=== PATIENT | male | born 1990 | race Caucasian/White ===

== ENCOUNTER 2018-11-13 23:00 | Emergency (ER) | payer MEDICAID, OTHER ==
[2018-11-13] MEDS ORDERED: Acetaminophen/HYDROcodone 325-10 MG Tab PO ONE (23:01)
[2018-11-13] MEDS ORDERED: Ketorolac 30 MG/ML SDV IM ONE (23:09)
--- NOTE | 2018-11-13 23:12 | EDM.PDOC ---
ED HPI GENERAL MEDICAL PROBLEM - General Chief Complaint: Back Pain or Injury Stated Complaint: SHARP PAIN ON LEFT SIDE, SOB [phone] Time Seen by Provider: 11/13/18 23:10 Source of Information: Reports: Patient History Limitations: Reports: No Limitations - History of Present Illness INITIAL COMMENTS - FREE TEXT/NARRATIVE: sudden onset left back pain while sitting, has h/o back pain works lifting. - Related Data Allergies Allergy/AdvReac Type Severity Reaction Status Date / Time No Known Allergies Allergy Verified 11/13/18 23:07 Home Meds: Home Meds . [No Known Home Meds] 11/14/18 [History] ED ROS GENERAL - Review of Systems Review Of Systems: ROS reveals no pertinent complaints other than HPI. ED EXAM,LOWER BACK PAIN/INJURY - Physical Exam Exam: See Below Exam Limited By: No Limitations General Appearance: Alert, WD/WN, Mild Distress, Other (pain) Ears: Hearing Grossly Normal Throat/Mouth: Normal Voice, No Airway Compromise Head: Atraumatic Neck: Non-Tender, Full Range of Motion Respiratory/Chest: No Respiratory Distress Cardiovascular: Regular Rate, Rhythm GI/Abdominal: Soft, Non-Tender Back Exam: Muscle Spasm, Paraspinal Tenderness, Other (left L2-3-4 region without radiculitis) Neurological: Alert, No Motor/Sensory Deficits, Oriented x 3 Psychiatric: Flat Affect Skin Exam: Warm, Dry, Normal Color Lymphatic: No Adenopathy Course - Vital Signs Last Recorded V/S: Last Vital Signs Temp 36.6 C 11/13/18 23:10 Pulse 89 11/13/18 23:10 Resp 20 11/13/18 23:10 BP 144/101 H 11/13/18 23:10 Pulse Ox 98 11/13/18 23:10 - Orders/Labs/Meds Orders: Active Orders 24 hr Category Date Time Status Sodium Chloride 0.9% [Normal Saline] 1,000 ml Med 11/13/18 23:39 Active IV .BOLUS Medication Orders Sodium Chloride (Normal Saline) 1,000 mls @ 999 mls/hr IV .BOLUS ONE Stop: 11/14/18 00:39 Last Admin: 11/13/18 23:47 Dose: 999 mls/hr Labs: Laboratory Tests 11/13/18 11/13/18 11/13/18 Range/Units 23:30 23:30 23:36 WBC 16.0 H (5.0-10.0) 10^3/uL RBC 6.09 (4.6-6.2) 10^6/uL Hgb 17.4 (14.0-18.0) g/dL Hct 50.0 (40.0-54.0) % MCV 82.1 (80-100) fL MCH 28.6 (27.0-34.0) pg MCHC 34.8 (33.0-35.0) g/dL Plt Count 319 (150-450) 10^3/uL Neut % (Auto) 82.7 H (42.2-75.2) % Lymph % (Auto) 11.5 L (20.5-50.1) % Summers % (Auto) 5.4 (2-8) % Eos % (Auto) 0.2 L (1.0-3.0) % Baso % (Auto) 0.2 (0.0-1.0) % Sodium (135-145) mmol/L Potassium (3.6-5.0) mmol/L Chloride (101-111) mmol/L Carbon Dioxide (21.0-31.0) mmol/L Anion Gap BUN (7-18) mg/dL Creatinine (0.6-1.3) mg/dL Est Cr Clr Drug Dosing mL/min Estimated GFR (MDRD) BUN/Creatinine Ratio Glucose (74-105) mg/dL Calcium (8.4-10.2) mg/dl Total Bilirubin (0.2-1.0) mg/dL AST (10-42) IU/L ALT (10-60) IU/L Alkaline Phosphatase (42-121) IU/L Total Protein (6.7-8.2) g/dl Albumin (3.2-5.5) g/dl Globulin Albumin/Globulin Ratio Urine Color Yellow (YELLOW) Urine Appearance Cloudy (CLEAR) Urine pH 7.0 (5.0-9.0) Ur Specific Ayden 1.020 (1.005-1.030) Urine Protein Trace H (NEGATIVE) Urine Glucose (UA) Negative (NEGATIVE) Urine Ketones Negative (NEGATIVE) Urine Occult Blood Large H (NEGATIVE) Urine Nitrite Negative (NEGATIVE) Urine Bilirubin Negative (NEGATIVE) Urine Urobilinogen 2.0 H (0.2-1.0) mg/dL Ur Leukocyte Esterase Negative (NEGATIVE) Urine RBC >100 H /HPF Urine WBC 0-5 (0-5/HPF) /HPF Ur Epithelial Cells Occasional (NOT SEEN) /HPF Amorphous Sediment Many (NOT SEEN) /HPF Urine Bacteria Few (0-FEW/HPF) /HPF Granular Casts Occasional (NOT SEEN) /LPF Urine Opiates Screen Negative (NEGATIVE) Ur Oxycodone Screen Negative (NEGATIVE) Urine Methadone Screen Negative (NEGATIVE) Ur Barbiturates Screen Negative (NEGATIVE) U Tricyclic Antidepress Negative (NEGATIVE) Ur Phencyclidine Scrn Negative (NEGATIVE) Ur Amphetamine Screen Negative (NEGATIVE) U Methamphetamines Scrn Negative (NEGATIVE) Urine MDMA Screen Negative (NEGATIVE) U Benzodiazepines Scrn Negative (NEGATIVE) Urine Cocaine Screen Negative (NEGATIVE) U Marijuana (THC) Screen Negative (NEGATIVE) 11/13/18 Range/Units 23:36 WBC (5.0-10.0) 10^3/uL RBC (4.6-6.2) 10^6/uL Hgb (14.0-18.0) g/dL Hct (40.0-54.0) % MCV (80-100) fL MCH (27.0-34.0) pg MCHC (33.0-35.0) g/dL Plt Count (150-450) 10^3/uL Neut % (Auto) (42.2-75.2) % Lymph % (Auto) (20.5-50.1) % Summers % (Auto) (2-8) % Eos % (Auto) (1.0-3.0) % Baso % (Auto) (0.0-1.0) % Sodium 139 (135-145) mmol/L Potassium 4.1 (3.6-5.0) mmol/L Chloride 101 (101-111) mmol/L Carbon Dioxide 27.0 (21.0-31.0) mmol/L Anion Gap 15.1 BUN 15 (7-18) mg/dL Creatinine 1.2 (0.6-1.3) mg/dL Est Cr Clr Drug Dosing 84.16 mL/min Estimated GFR (MDRD) > 60 BUN/Creatinine Ratio 12.50 Glucose 160 H (74-105) mg/dL Calcium 9.4 (8.4-10.2) mg/dl Total Bilirubin 1.1 H (0.2-1.0) mg/dL AST 31 (10-42) IU/L ALT 64 H (10-60) IU/L Alkaline Phosphatase 68 (42-121) IU/L Total Protein 8.1 (6.7-8.2) g/dl Albumin 4.7 (3.2-5.5) g/dl Globulin 3.4 Albumin/Globulin Ratio 1.38 Urine Color (YELLOW) Urine Appearance (CLEAR) Urine pH (5.0-9.0) Ur Specific Ayden (1.005-1.030) Urine Protein (NEGATIVE) Urine Glucose (UA) (NEGATIVE) Urine Ketones (NEGATIVE) Urine Occult Blood (NEGATIVE) Urine Nitrite (NEGATIVE) Urine Bilirubin (NEGATIVE) Urine Urobilinogen (0.2-1.0) mg/dL Ur Leukocyte Esterase (NEGATIVE) Urine RBC /HPF Urine WBC (0-5/HPF) /HPF Ur Epithelial Cells (NOT SEEN) /HPF Amorphous Sediment (NOT SEEN) /HPF Urine Bacteria (0-FEW/HPF) /HPF Granular Casts (NOT SEEN) /LPF Urine Opiates Screen (NEGATIVE) Ur Oxycodone Screen (NEGATIVE) Urine Methadone Screen (NEGATIVE) Ur Barbiturates Screen (NEGATIVE) U Tricyclic Antidepress (NEGATIVE) Ur Phencyclidine Scrn (NEGATIVE) Ur Amphetamine Screen (NEGATIVE) U Methamphetamines Scrn (NEGATIVE) Urine MDMA Screen (NEGATIVE) U Benzodiazepines Scrn (NEGATIVE) Urine Cocaine Screen (NEGATIVE) U Marijuana (THC) Screen (NEGATIVE) Meds: Medications Generic Name Dose Route Start Last Admin Trade Name Freq PRN Reason Stop Dose Admin Sodium Chloride 1,000 mls @ 999 mls/hr 11/13/18 23:39 11/13/18 23:47 Normal Saline IV 11/14/18 00:39 999 mls/hr .BOLUS ONE Administration Discontinued Medications Generic Name Dose Route Start Last Admin Trade Name Freq PRN Reason Stop Dose Admin Fentanyl 50 mcg 11/13/18 23:39 11/13/18 23:46 Sublimaze IVPUSH 11/13/18 23:40 50 mcg ONETIME ONE Administration Ketorolac Tromethamine 30 mg 11/13/18 23:09 11/13/18 23:20 Toradol IM 11/13/18 23:10 30 mg ONETIME ONE Administration Ondansetron HCl 4 mg 11/13/18 23:39 11/13/18 23:45 Zofran IV 11/13/18 23:40 4 mg ONETIME ONE Administration - Re-Assessments/Exams Free Text/Narrative Re-Assessment/Exam: 11/13/18 23:29 re-exam; s/p IM toradol = '0', states worried might be K-stone. 11/14/18 00:39 results discussed with pt who is feeling much better. Departure - Departure Time of Disposition: 00:39 Disposition: Home, Self-Care 01 Condition: Good Clinical Impression: Renal colic on left side - Discharge Information Instructions: Renal Colic, [id number] Forms: ED Department Discharge Additional Instructions: 1) rest 2) drink lots of liquids 3) strain all urine 4) follow up with clinic and have stone analyse rx togo; norco 10 bid prn x 2 - My Orders Last 24 Hours: My Active Orders 11/13/18 23:39 Sodium Chloride 0.9% [Normal Saline] 1,000 ml IV .BOLUS - Assessment/Plan Last 24 Hours: My Active Orders 11/13/18 23:39 Sodium Chloride 0.9% [Normal Saline] 1,000 ml IV .BOLUS
[2018-11-13] MEDS ORDERED: Ondansetron 4 MG/2 ML SDV IV ONE (23:39)
[2018-11-13] MEDS ORDERED: fentaNYL 100 MCG/2 ML SDV IVPUSH ONE (23:39)
[2018-11-13] MEDS ORDERED: Sodium Chloride 0.9% 1,000 ML IV ONE (23:39)
[2018-11-14 00:04] LABS: ANION GAP 15.1; CHLORIDE,CL 101 mmol/L (101-111); SODIUM,NA 139 mmol/L (135-145)
[2018-11-14] MEDS ORDERED: Acetaminophen/HYDROcodone 325-10 MG Tab ONE (00:41)
[2018-11-14] MEDS ORDERED: Acetaminophen/HYDROcodone 325-10 MG Tab PO ONE (01:04)
== END 2018-11-14 01:10 | disposition home or self-care (01) ==
LOC: DL.ED 23:00
DX: N13.2 Hydronephrosis with renal and ureteral calculous obstruction (principal)
CPT/HCPCS: 36415; 74176; 80053; 80305; 81001; 85025; 96361; 96374; 96375; 99284; A9270; J1885; J2405; J3010; J7030